=== PATIENT | male | born 1955 | race Caucasian/White ===

== ENCOUNTER → 2016-05-16 | Outpatient (CLI) | payer OTHER ==
[~2016-05-16] MED LIST: ALLERGY RELIEF25 MG PO; ARTHROTEC 751 TABLET PO; IBUPROFEN200 M1 PO; KEFLEX500 MG PO; LISINOPRIL40 MG PO; MEVACOR40 MG PO; PYRIDIUM100 MG NG; TYLENOL EXTRA500 MG PO; UROXATRAL10 MG PO; ZESTORETIC 20-1 EAC2 PO
== END | disposition home or self-care (01) ==
LOC: MRI 12:21 → RAD 13:30
DX: M54.31 Sciatica, right side (principal); M46.1 Sacroiliitis, not elsewhere classified; M51.36 Other intervertebral disc degeneration, lumbar region; M51.37 Other intervertebral disc degeneration, lumbosacral region; M70.61 Trochanteric bursitis, right hip
CPT/HCPCS: 72148

== ENCOUNTER → 2017-09-30 | Outpatient (CLI) | payer OTHER | END | disposition home or self-care (01) | LOC: RAD 09-29 14:15 | DX: M46.96 Unspecified inflammatory spondylopathy, lumbar region (principal); M47.897 Other spondylosis, lumbosacral region | CPT/HCPCS: 72148 ==